=== PATIENT | male | born 1970 | race Caucasian/White ===

== ENCOUNTER 2017-01-24 20:55 | Emergency (ER) | payer SELFPAY ==
[~2017-01-24] VITALS: Ht 177.8 cm; Wt 79.4 kg
[2017-01-24 22:05] VITALS: BP 155/96
== END 2017-01-24 23:15 | disposition left against medical advice (07) ==
LOC: ER 21:21
DX: M54.9 Dorsalgia, unspecified (principal); Z53.21 Procedure and treatment not carried out due to patient leaving prior to being seen by health care provider
CPT/HCPCS: 72100; 72220; 73502